=== PATIENT | female | born 1960 | race Caucasian/White ===

== ENCOUNTER 2018-12-27 06:29 | Day surgery (SDC) | payer BC, SELFPAY ==
--- NOTE | 2018-12-26 18:27 | POEE_ITS ---
History of Present Illness Chief Complaint: Progressive decreased vision, right eye Narrative: patient is a 57-year-old lady with history of diabetes with diabetic retinopathy who presented with complaints of diminished visual acuity in both eyes at both distance and near. She has difficulty reading road signs and sees halos around lights. On examination she was noted to have bilateral nuclear and cortical cataracts as well as corneal endothelial dystrophy. The option of cataract surgery was offered to the patient and she wished to proceed. NOTE: The Chief Complaint, HPI, Past Medical History, Past Surgical History, Family History, Social History, Medications, and complete Ophthalmic Exam with detailed Assessment and Plan have already been documented in the patient's outpatient ophthalmic record and are not covered again in detail here. PFSH Medical History Corneal endothelial dystrophy (Chronic) Cortical cataract of right eye (Acute) Nuclear sclerotic cataract of right eye (Acute) Asthma (Chronic) CVA (cerebral vascular accident) (Chronic) Cataract (Chronic) Hypertension (Chronic) Hyperthyroidism (Chronic) Insulin dependent diabetes mellitus (Chronic) Surgical History History of colonoscopy (Chronic) Social History Smoking/Tobacco Use Status: Never Alcohol Intake: current Alcohol Intake frequency: holidays/special occasions only Drug use: Never Substance use type: does not use Do you feel safe at home: Yes Do you feel safe in your relationship?: Yes Meds Home Medications Medication Instructions Recorded Confirmed Type albuterol sulfate [ProAir HFA] 2 puff INHALATION Q4H PRN PRN 12/21/18 12/21/18 History ascorbic acid (vitamin C) [Vitamin 500 mg PO DAILY 12/21/18 12/21/18 History C] aspirin [Aspir-Low] 81 mg PO DAILY 12/21/18 12/21/18 History atorvastatin 20 mg PO DAILY 12/21/18 12/21/18 History fluticasone propion-salmeterol 1 inh INHALATION BID PRN 12/21/18 12/21/18 History [Advair Diskus] fluticasone propionate 1 spray INTRANASAL DAILY 12/21/18 12/21/18 History insulin lispro [Humalog U-100 12/21/18 History Insulin] levothyroxine 125 mcg PO DAILY 12/21/18 12/21/18 History lisinopril 10 mg PO DAILY 12/21/18 12/21/18 History Allergies Allergy/AdvReac Type Severity Reaction Status Date / Time Penicillins Allergy Unknown Verified 12/21/18 15:39 shellfish derived Allergy Unknown Verified 12/21/18 15:39 Exam OCULAR EXAM:: Most recent ocular examination is significant for corrected visual acuity of 20/30 OD, 20/40 OS. Intraocular pressure is 10 OD, 12 OS. Extraocular motility is normal. Pupils equal, round, and reactive without afferent pupillary defect. Slit-lamp examination reveals pupils dilating to 6 mm OU. 1+ endothelial guttata OU. 1+ nuclear/cortical cataracts OU. Dilated funduscopic examination reveals disc cupping of 0.3 OU with normal vessels. Scattered drusen are present in both macula. Peripheral retina and this is normal. BRIGHTNESS ACUITY TESTING (BAT):: Brightness acuity testing of the right eye office is 20/30. Low is 20/30. Medium is 20/40. On the high setting is 20/60. Assessment and Plan (1) Nuclear sclerotic cataract of right eye: Current visit: No Status: Acute Assessment: Visually significant cataract, right eye. Plan: Cataract extraction with intraocular lens implantation, right eye (2) Cortical cataract of right eye: Current visit: No Status: Acute Assessment: Visually significant cataract, right eye. Plan: Cataract extraction with intraocular lens implantation, right eye Note: NOTE:: The details of the planned surgery, including the risks, ind ications,limitations,expectations,outcome and possible complications were explained to the patient. The patient understands the complications including, but not limited to: infection, hemorrhage, posterior dislocation of the lens or nuclear fragments which may require the intervention of a vitreoretinal surgeon, possible loss of the eye, or from anesthetic complications. The patient has been made aware of the option of not having surgery, that vision following surgery may not be equal to that prior to surgery, and that the planned surgery may not achieve the intended results. Following this discussion, which the patient appeared to understand, the patient wishes to proceed with cataract surgery with lens implantation of the affected eye to improve and maximize vision.
--- NOTE | 2018-12-26 20:28 | W.PM.DSUDISC ---
Discharge Plan Disposition Patient Disposition: HOME Condition: Stable Discharge Details Reason For Visit: CATARACT Attending Provider: Kevin Sutton Primary Care Provider: Norah Rosales Home Meds and New Rx's Prescriptions: No Action fluticasone propion-salmeterol [Advair Diskus] 250-50 mcg/dose Blister With Device 1 inh INHALATION BID PRNRF: 0 atorvastatin 20 mg Tablet 20 mg PO DAILY RF: 0 aspirin [Aspir-Low] 81 mg Tablet,Delayed Release (Dr/Ec) 81 mg PO DAILY RF: 0 ascorbic acid (vitamin C) [Vitamin C] 500 mg Tablet 500 mg PO DAILY RF: 0 levothyroxine 125 mcg Tablet 125 mcg PO DAILY RF: 0 lisinopril 10 mg Tablet 10 mg PO DAILY RF: 0 albuterol sulfate [ProAir HFA] 90 mcg/actuation Hfa Aerosol Inhaler 2 puff INHALATION Q4H PRN PRNRF: 0 fluticasone propionate 50 mcg/actuation [place],Suspension 1 spray INTRANASAL DAILY RF: 0 Humalog U-100 Insulin 100 unit/mL Cartridge RF: 0 Discharge Instructions Stand Alone Forms: Post-op Topical Cataract, Perfecto Kumari (DSU) Discharge Orders Discharge Orders: Discharge Order (Routine); Ordered 12/27/18 Ordered By: Kevin Sutton DS: Diagnosis Discharge Diagnosis (1) Nuclear sclerotic cataract of right eye: Status: Resolved (2) Cortical cataract of right eye: Status: Resolved (3) Status post cataract extraction and insertion of intraocular lens of right eye: Status: Chronic
--- NOTE | 2018-12-26 20:32 | ROE_ITS ---
Date of service: 12/27/18 Time of Service: 08:05 Operative Note PRE-OP DIAGNOSIS: Cataract, right eye PROCEDURE: Cataract extraction using phacoemulsification with intraocular lens implant, right eye SURGEON: Kevin Sutton ANESTHESIA: MAC and local (sub-tenon's anesthetic infiltration) ESTIMATED BLOOD LOSS: 0 PATHOLOGY: none sent COMPLICATIONS: None Patient was transported to: same day Patient's condition: stable Implants: Gianluca and Gianluca Vision / [employer] Tecnis ZCB00 intraocular lens Indications: Progressive decreased vision due to cataract, right eye Procedure Description: CATARACT SURGERY OPERATIVE REPORT PREOPERATIVE DIAGNOSIS: Nuclear/cortical cataract, right eye POSTOPERATIVE DIAGNOSIS: Same OPERATION: Cataract extraction using phacoemulsification with posterior chamber intraocular lens implant, right eye. IOL: IOL Head Doffer/Model: J[employer]J [employer]ariant / GALILEA Tecnis ZCB00 IOL Power: + 22.5 diopters IOL Serial Number: [id number] Optic Diameter: 6.0mm Haptic/Overall Diameter: 13.0mm PHACO INFO: Jc [employer] Vision System with OZil and Active Fluidics Cumulative Dispersed Energy (CDE): 7.10 seconds SURGEON: Kevin Sutton MD, FILIPPO ANESTHESIA: Monitored Anesthesia Care (MAC), with local sub-tenon's anesthetic infiltration COMPLICATIONS: None SPECIMENS: None INDICATIONS FOR PROCEDURE: The patient is a 57-year-old lady with history of diminished visual acuity in her right eye. She is noted to have a moderate nuclear and cortical cataract with endothelial dystrophy of the cornea. She also has maculopathy of the right eye which she understands will limit her postoperative visual acuity. The option of cataract surgery was offered to the patient and she wished to proceed. PROCEDURE: The correct surgical eye was identified and marked as the right eye and the pupil was dilated in the preoperative area using mydriatics and cycloplegics. The dilated pupil size was 7.0 mm. Oral sedation was administered in the form of an Imprimis MKO Melt (midazolam 3mg/ketamine 25mg/ondansetron 2mg). The patient was brought to the operating room where cardiopulmonary monitoring was instituted and surgical time-out was performed, confirming the correct operative eye and IOL power. Topical anesthesia was administered and ophthalmic povidone-iodine 5% was insti lled into the conjunctival fornices. Lidocaine gel was applied to the cornea and the delaney-ocular area was prepped with Betadine 10% solution and draped in the usual sterile fashion for intraocular surgery, including an aperture drape. A Tegaderm transparent film dressing was cut in half and used to cover the lashes and lid margins. Care was taken to sequester the lashes and lid margins under the Tegaderm dressing. A lid speculum was placed between the lids of the operative eye and the Nino-Sukhi operating microscope was maneuvered into position. Joaquin scissors were then used to make a conjunctival buttonhole approximately 6mm posterior to the limbus in the inferonasal quadrant. Blunt dissection was carried out to expose bare sclera, and a blunt-tipped sub-tenon?s anesthesia cannula was introduced and passed posteriorly along the globe where non- preserved plain lidocaine was injected into posterior sub-Tenon?s space. A sideport knife was used to make a paracentesis port inferiortemporally, and the anterior chamber was filled with VIscoat. A 2.4mm keratome knife was used to create a half-thickness groove at the limbus and then to construct a three-plane near-clear corneal tunnel extending 2.0mm into clear cornea in the superiortemporal position. . A flap was raised on the anterior capsule and capsulorhexis forceps were used to complete a continuous curvilinear capsulor hexis of 5.0 mm. Balanced salt solution was then used to perform cortical cleaving hydrodissection and nuclear hydrodelineation until the lens could be freely rotated within the capsular bag. The lens nucleus was then disassembled and removed within the capsular bag and iris plane using phacoemulsification. Residual cortical material was removed using the I/A handpiece. The posterior capsule was carefully polished to remove as much residual lens epithelial cells as safely possible. The capsular bag was then inflated and the anterior chamber deepened with Provisc. The lens implant described above was inserted into the capsular bag using the GALILEA [place] Injector. A Kuglen hook was used to dial the IOL into position. Residual viscoelastic was then removed first from posterior to the IOL, then from the anterior chamber using the I/A handpiece. The lens implant was noted to center nicely within the capsular bag. The incisions were stromally hydrated, and the anterior chamber was reformed using BSS. Then 0.4cc of moxifloxacin 1.5mg/ml were injected into the capsular bag and anterior chamber. The incisions were checked with a Weck spear and found to be secure. Several drops of ophthalmic povidone-iodine 5% were then applied to the eye followed by two drops of Imprimis combination gatifloxacin/dexamethasone solution. The drapes were removed and a clear plastic protective eye shield was placed over the eye. The patient was then returned to Same Day Surgery in stable condition.
[2018-12-27 06:52] VITALS: BP 131/60; PULSE 60; RESP 16; TEMP 35.6; O2SAT 98
[2018-12-27] MEDS: Tetracaine 0.5% 4 ML BTL OD ×4 (07:07→07:32)
[2018-12-27] MEDS: Tropicam./Phenyleph. (1/2.5%) 5 ML BTL OD ×3 (07:08→07:19)
[2018-12-27] MEDS: Lidocaine 2% Jelly 6 ML SYR (07:32)
[2018-12-27] MEDS: Povidone-Iodine Ophth 30 ML BTL ×2 (07:32→07:59)
[2018-12-27] MEDS: Duovisc Viscoelastic System EACH 1 EACH (07:38)
[2018-12-27] MEDS: Lidocaine 1% Pres-Free 5 ML VIAL (07:38)
[2018-12-27] MEDS: Balanced Salt Soln.-PLUS 500 ML BAG (07:38)
[2018-12-27 08:20] VITALS: BP 131/65; PULSE 52; RESP 16; TEMP 35.4; O2SAT 100
== END 2018-12-27 08:30 | disposition home or self-care (01) ==
LOC: SUR 06:29
PROVIDERS: PCP Registered Nurse; Visit Provider Ophthalmology
PROC: (CPT 66984; principal; 2018-12-27 07:30)
DX: H25.811 Combined forms of age-related cataract, right eye (principal); I10 Essential (primary) hypertension; E11.9 Type 2 diabetes mellitus without complications; Z79.4 Long term (current) use of insulin
CPT/HCPCS: 66984; V2632

== ENCOUNTER 2019-01-10 06:23 | Day surgery (SDC) | payer BC, SELFPAY ==
--- NOTE | 2019-01-09 17:12 | POEE_ITS ---
History of Present Illness Chief Complaint: Progressive decreased vision, left eye Narrative: The patient is a 58-year-old lady with history of progressive decreased vision in both eyes at both distance and near. She noted significant difficulty with driving. On examination she was noted to have bilateral nuclear and cortical cataracts. She was significantly symptomatic that she desired cataract surgery to attempt to improve and maximize her vision. She underwent cataract surgery in the right eye on 12/27/2018. Postoperatively she has regained uncorrected vision of 20/25 in the right eye. She now presents for cataract surgery in the left eye. NOTE: The Chief Complaint, HPI, Past Medical History, Past Surgical History, Family History, Social History, Medications, and complete Ophthalmic Exam with detailed Assessment and Plan have already been documented in the patient's outpatient ophthalmic record and are not covered again in detail here. PFSH Medical History Corneal endothelial dystrophy (Chronic) Asthma (Chronic) CVA (cerebral vascular accident) (Chronic) Cataract (Chronic) Hypertension (Chronic) Hyperthyroidism (Chronic) Insulin dependent diabetes mellitus (Chronic) Cortical cataract of right eye (Resolved) Nuclear sclerotic cataract of right eye (Resolved) Surgical History Status post cataract extraction and insertion of intraocular lens of right eye (Chronic 12/27/18) History of colonoscopy (Chronic) Social History Smoking/Tobacco Use Status: Never Alcohol Intake: current Alcohol Intake frequency: holidays/special occasions only Drug use: Never Substance use type: does not use Do you feel safe at home: Yes Do you feel safe in your relationship?: Yes Meds Home Medications Medication Instructions Recorded Confirmed Type albuterol sulfate [ProAir HFA] 2 puff INHALATION Q4H PRN PRN 12/21/18 12/27/18 History ascorbic acid (vitamin C) [Vitamin 500 mg PO DAILY 12/21/18 12/27/18 History C] aspirin [Aspir-Low] 81 mg PO DAILY 12/21/18 12/27/18 History atorvastatin 20 mg PO DAILY 12/21/18 12/27/18 History fluticasone propion-salmeterol 1 inh INHALATION BID PRN 12/21/18 12/27/18 History [Advair Diskus] fluticasone propionate 1 spray INTRANASAL DAILY 12/21/18 12/21/18 History insulin lispro [Humalog U-100 12/21/18 History Insulin] levothyroxine 125 mcg PO DAILY 12/21/18 12/27/18 History lisinopril 10 mg PO DAILY 12/21/18 12/27/18 History Allergies Allergy/AdvReac Type Severity Reaction Status Date / Time Penicillins Allergy Unknown Verified 12/27/18 06:48 shellfish derived Allergy Unknown Verified 12/27/18 06:48 Exam OCULAR EXAM:: Most recent ocular examination is significant for uncorrected vision of 20/25 in the right eye. Corrected visual acuity is 20/40 in the left eye. Intraocular pressure is 10 OD, 12 OS. Extraocular motility is normal. Pupils equal, round, and reactive without afferent pupillary defect slit-lamp examination is significant for pupils dilating to 6 mm OU. 1+ corneal endothel ial guttata OU. Well-positioned PCIOL OD with clear posterior capsule. 1+ nuclear/cortical cataract OS. Optic nerves show cupping of 0.3 OU with normal vessels and good color. There are a few scattered drusen in both maculas. Peripheral retina and vitreous is normal. BRIGHTNESS ACUITY TESTING (BAT):: Brightness acuity testing of the left eye off ice is 20/40. Low is 20/30. Medium is 20/30. High is 20/40. Assessment and Plan (1) Nuclear sclerotic cataract of left eye: Current visit: No Status: Acute Assessment: Visually significant cataract, left eye. Plan: Cataract extraction with intraocular lens implantation, left eye (2) Cortical cataract of left eye: Current visit: No Status: Acute Assessment: Visually significant cataract, left eye. Plan: Cataract extraction with intraocular lens implantation, left eye Note: NOTE:: The details of the planned surgery, including the risks, indications,limitations,expectations,outcome and possible complications were explained to the patient. The patient understands the complications including, but not limited to: infection, hemorrhage, posterior dislocation of the lens or nuclear fragments which may require the intervention of a vitreoretinal surgeon, possible loss of the eye, or from anesthetic complications. The patient has been made aware of the option of not having surgery, that vision following surgery may not be equal to that prior to surgery, and that the planned surgery may not achieve the intended results. Following this discussion, which the patient appeared to understand, the patient wishes to proceed with cataract surgery with lens implantation of the affected eye to improve and maximize vision.
[2019-01-10 06:38] VITALS: BP 126/70; PULSE 52; RESP 16; TEMP 35.5; O2SAT 97
[2019-01-10] MEDS: Tetracaine 0.5% 4 ML BTL OS ×4 (06:53→07:28)
[2019-01-10] MEDS: Tropicam./Phenyleph. (1/2.5%) 5 ML BTL OS ×3 (06:53→07:01)
[2019-01-10] MEDS: Povidone-Iodine Ophth 30 ML BTL (07:28)
[2019-01-10] MEDS: Lidocaine 2% Jelly 6 ML SYR (07:28)
[2019-01-10] MEDS: Lidocaine 1% Pres-Free 5 ML VIAL (07:35)
[2019-01-10] MEDS: Balanced Salt Soln.-PLUS 500 ML BAG (07:36)
[2019-01-10] MEDS: Duovisc Viscoelastic System EACH 1 EACH (07:36)
[2019-01-10] MEDS: Triamcinolone 40 MG/ML VIAL (07:37)
--- NOTE | 2019-01-10 08:06 | PDOC.DSDIS_ITS ---
Discharge Plan Disposition Patient Disposition: HOME Condition: Stable Discharge Details Attending Provider: Kevin Sutton Primary Care Provider: Norah Rosales Home Meds and New Rx's Prescriptions: No Action fluticasone propion-salmeterol [Advair Diskus] 250-50 mcg/dose Blister With Device 1 inh INHALATION BID PRNRF: 0 atorvastatin 20 mg Tablet 20 mg PO DAILY RF: 0 aspirin [Aspir-Low] 81 mg Tablet,Delayed Release (Dr/Ec) 81 mg PO DAILY RF: 0 ascorbic acid (vitamin C) [Vitamin C] 500 mg Tablet 500 mg PO DAILY RF: 0 levothyroxine 125 mcg Tablet 125 mcg PO DAILY RF: 0 lisinopril 10 mg Tablet 10 mg PO DAILY RF: 0 albuterol sulfate [ProAir HFA] 90 mcg/actuation Hfa Aerosol Inhaler 2 puff INHALATION Q4H PRN PRNRF: 0 fluticasone propionate 50 mcg/actuation [place],Suspension 1 spray INTRANASAL DAILY RF: 0 Humalog U-100 Insulin 100 unit/mL Cartridge Continuous Subcutaneous Infusion PRN RF: 0 Discharge Instructions Stand Alone Forms: Post-op Topical Cataract, Perfecto Kumari (DSU) Discharge Orders Discharge Orders: Discharge Order (Routine); Ordered 01/10/19 Ordered By: Kevin Sutton DS: Diagnosis Discharge Diagnosis (1) Nuclear sclerotic cataract of left eye: Status: Resolved (2) Cortical cataract of left eye: Status: Resolved (3) Status post cataract extraction and insertion of intraocular lens of left eye: Status: Chronic
--- NOTE | 2019-01-10 08:06 | W.PM.OP ---
Date of service: 01/10/19 Time of Service: 08:06 Operative Note PRE-OP DIAGNOSIS: Cataract, left eye POST-OP DIAGNOSIS: same PROCEDURE: Cataract extraction using phacoemulsification with intraocular lens implant, left eye SURGEON: Kevin Sutton ANESTHESIA: MAC and local (sub-tenon's anesthetic infiltration) PATHOLOGY: none sent COMPLICATIONS: None Patient was transported to: same day Patient's condition: stable Implants: Gianluca and Gianluca Vision / [employer] Tecnis ZCB00 Indications: Progressive decreased vision due to cataract, left eye Procedure Description: CATARACT SURGERY OPERATIVE REPORT PREOPERATIVE DIAGNOSIS: Nuclear/cortical cataract, left eye Corneal endothelial dystrophy POSTOPERATIVE DIAGNOSIS: Same OPERATION: Cataract extraction using phacoemulsification with posterior chamber intraocular lens implant, left eye. IOL: IOL Jewelry Sorter/Model: J&J Vision / GALILEA Tecnis ZCB00 IOL Power: + 23.0 diopters IOL Serial Number: [id number] Optic Diameter: 6.0mm Haptic/Overall Diameter: 13.0mm PHACO INFO: [employer] Vision System with OZil and Active Fluidics Cumulative Dispersed Energy (CDE): 4.81 seconds SURGEON: Kevin Sutton MD, FILIPPO ANESTHESIA: Monitored Anesthesia Care (MAC), with local sub-tenon's anesthetic infiltration COMPLICATIONS: None SPECIMENS: None INDICATIONS FOR PROCEDURE: The patient is a 58-year-old lady with history of corneal endothelial dystrophy who presented with complaints of diminished visual acuity in both eyes. She was noted to have significant bilateral nuclear and cortical cataracts as well as corneal endothelial dystrophy. The option of cataract surgery was offered to the patient and she wished to proceed. She has already undergone cataract surgery in the right eye, and now presents for surgery in the left eye. PROCEDURE: The correct surgical eye was identified and marked as the left eye and the pupil was dilated in the preoperative area using mydriatics and cycloplegics. The dilated pupil size was 7.0 mm. Oral sedation was administered in the form of an Imprimis MKO Melt (midazolam 3mg/ketamine 25mg/ondansetron 2mg). The patient was brought to the operating room where cardiopulmonary monitoring was instituted and surgical time-out was performed, confirming the correct operative eye and IOL power. Topical anesthesia was administered and ophthalmic povidone-iodine 5% was instilled into the conjunctival fornices. Lidocaine gel was applied to the cornea and the delaney-ocular area was prepped with Betadine 10% solution and draped in the usual sterile fashion for intraocular surgery, including an aperture drape. A Tegaderm transparent film dressing was cut in half and used to cover the lashes and lid margins. Care was taken to sequester the lashes and lid margins under the Tegaderm dressing. A lid speculum was placed between the lids of the operative eye and the Nino-Sukhi operating microscope was maneuvered into position. Joaquin scissors were then used to make a conjunctival buttonhole approximately 6mm posterior to the limbus in the inferonasal quadrant. Blunt dissection was carried out to expose bare sclera, and a blunt-tipped sub-tenon?s anesthesia cannula was introduced and passed posteriorly along the globe where non-preserved plain lidocaine was injected into posterior sub-Tenon?s space. A sideport knife was used to make a paracentesis port superior/superiortemporal, and the anterior chamber was filled with Viscoat. A 2.4mm keratome knife was used to create a half-thickness groove at the limbus and then to construct a three-plane near-clear corneal tunnel extending 2.0mm into clear cornea in the temporal position. . A flap was raised on the anterior capsule and capsulorhexis forceps were used to complete a continuous curvilinear capsulorhexis of 5.5 mm. Balanced salt solution was then used to perform cortical cleaving hydrodissection and nuclear hydrodelineation until the lens could be freely rotated within the capsular bag. The lens nucleus was then disassembled and removed within the capsular bag and iris plane using phacoemulsification. Residual cortical material was removed using the 45-degree angled silicone I/A tip with 0.3mm port. The posterior capsule was carefully polished to remove as much residual lens epithelial cells as safely possible. The capsular bag was then inflated and the anterior chamber deepened with Provisc. The lens implant described above was inserted into the capsular bag using the GALILEA [place] Injector. A Kuglen hook was used to dial the IOL into position. Residual viscoelastic was then removed first from posterior to the IOL, then from the anterior chamber using the I/A handpiece. The lens implant was noted to center nicely within the capsular bag. The incisions were stromally hydrated, and the anterior chamber was reformed using BSS. Then 0.4cc of moxifloxacin 1.5mg/ml were injected into the capsular bag and anterior chamber. The incisions were checked with a Weck spear and found to be secure. At the conclusion of the procedure, a 1 cc mixture containing 20 mg of Kenalog in 0.5 cc, and 2.5 mg of moxifloxacin in 0.5 cc were injected into posterior sub-tenon's space using the sub-tenon's anesthesia cannula. Several drops of ophthalmic povidone-iodine 5% were then applied to the eye followed by two drops of Imprimis combination prednisolone/gatifloxacin/bromfenac solution. The drapes were removed and a clear plastic protective eye shield was placed over the eye. The patient was then returned to Same Day Surgery in stable condition.
--- NOTE | 2019-01-10 08:09 | ROE_ITS ---
Date of service: 01/10/19 Time of Service: 08:06 Operative Note PRE-OP DIAGNOSIS: Cataract, left eye POST-OP DIAGNOSIS: same PROCEDURE: Cataract extraction using phacoemulsification with intraocular lens implant, left eye SURGEON: Kevin Sutton ANESTHESIA: MAC and local (sub-tenon's anesthetic infiltration) PATHOLOGY: none sent COMPLICATIONS: None Patient was transported to: same day Patient's condition: stable Implants: Gianluca and [employer] / [employer] Tecnis ZCB00 Indications: Progressive decreased vision due to cataract, left eye Procedure Description: CATARACT SURGERY OPERATIVE REPORT PREOPERATIVE DIAGNOSIS: Nuclear/cortical cataract, left eye Corneal endothelial dystrophy POSTOPERATIVE DIAGNOSIS: Same OPERATION: Cataract extraction using phacoemulsification with posterior chamber intraocular lens implant, left eye. IOL: IOL Business Database Analyst/Model: [employer] / GALILEA Tecnis ZCB00 IOL Power: + 23.0 diopters IOL Serial Number: [id number] Optic Diameter: 6.0mm Haptic/Overall Diameter: 13.0mm PHACO INFO: [employer] Vision System with OZil and [employer] Cumulative Dispersed Energy (CDE): 4.81 seconds SURGEON: Kevin Sutton MD, FILIPPO ANESTHESIA: Monitored Anesthesia Care (MAC), with local sub-tenon's anesthetic infiltration COMPLICATIONS: None SPECIMENS: None INDICATIONS FOR PROCEDURE: The patient is a 58-year-old lady with history of corneal endothelial dystrophy who presented with complaints of diminished visual acuity in both eyes. She was noted to have significant bilateral nuclear and cortical cataracts as well as corneal endothelial dystrophy. The option of cataract surgery was offered to the patient and she wished to proceed. She has already undergone cataract surgery in the right eye, and now presents for surgery in the left eye. PROCEDURE: The correct surgical eye was identified and marked as the left eye and the pupil was dilated in the preoperative area using mydriatics and cycloplegics. The dilated pupil size was 7.0 mm. Oral sedation was administered in the form of an Imprimis MKO Melt (midazolam 3mg/ketamine 25mg/ondansetron 2mg). The patient was brought to the operating room where cardiopulmonary monitoring was instituted and surgical time-out was performed, confirming the correct operative eye and IOL power. Topical anesthesia was administered and ophthalmic povidone-iodine 5% was instilled into the conjunctival fornices. Lidocaine gel was applied to the cornea and the delaney-ocular area was prepped with Betadine 10% solution and draped in the usual sterile fashion for intraocular surgery, including an aperture drape. A Tegaderm transparent film dressing was cut in half and used to cover the lashes and lid margins. Care was taken to sequester the lashes and lid margins under the Tegaderm dressing. A lid speculum was placed between the lids of the operative eye and the Nino-Sukhi operating microscope was maneuvered into position. Joaquin scissors were then used to make a conjunctival buttonhole approximately 6mm posterior to the limbus in the inferonasal quadrant. Blunt dissection was carried out to expose bare sclera, and a blunt-tipped sub-tenon?s anesthesia cannula was introduced and passed posteriorly along the globe where non- preserved plain lidocaine was injected into posterior sub-Tenon?s space. A sideport knife was used to make a paracentesis port superior/superiortemporal, and the anterior chamber was filled with Viscoat. A 2.4mm keratome knife was used to create a half-thickness groove at the limbus and then to construct a three-plane near-clear corneal tunnel extending 2.0mm into clear cornea in the temporal position. . A flap was raised on the anterior capsule and capsulorhexis forceps were used to complete a continuous curvilinear capsulorhexis of 5.5 mm. Balanced salt solution was then used to perform cortical cleaving hydrodissection and nuclear hydrodelineation until the lens could be freely rotated within the capsular bag. The lens nucleus was then disassembled and removed within the capsular bag and iris plane using phacoemulsification. Residual cortical material was removed using the 45-degree angled silicone I/A tip with 0.3mm port. The posterior capsule was carefully polished to remove as much residual lens epithelial cells as safely possible. The capsular bag was then inflated and the anterior chamber deepened with Provisc. The lens implant described above was inserted into the capsular bag using the GALILEA [place] Injector. A Kuglen hook was used to dial the IOL into position. Residual viscoelastic was then removed first from posterior to the IOL, then from the anterior chamber using the I/A handpiece. The lens implant was noted to center nicely within the capsular bag. The incisions were stromally hydrated, and the anterior chamber was reformed using BSS. Then 0.4cc of moxifloxacin 1.5mg/ml were injected into the capsular bag and anterior chamber. The incisions were checked with a Weck spear and found to be secure. At the conclusion of the procedure, a 1 cc mixture containing 20 mg of Kenalog in 0.5 cc, and 2.5 mg of moxifloxacin in 0.5 cc were injected into posterior sub- tenon's space using the sub-tenon's anesthesia cannula. Several drops of ophthalmic povidone-iodine 5% were then applied to the eye followed by two drops of Imprimis combination prednisolone/gatifloxacin/bromfenac solution. The drapes were removed and a clear plastic protective eye shield was placed over the eye. The patient was then returned to [facility] in stable condition.
[2019-01-10 08:33] VITALS: BP 129/69; PULSE 46; RESP 16; TEMP 35.3; O2SAT 99
== END 2019-01-10 09:05 | disposition home or self-care (01) ==
PROVIDERS: PCP Registered Nurse; Visit Provider Ophthalmology
PROC: (CPT 66984; principal; 2019-01-10 07:30)
DX: H25.812 Combined forms of age-related cataract, left eye (principal); H18.51 Endothelial corneal dystrophy; Z98.41 Cataract extraction status, right eye; Z96.1 Presence of intraocular lens; I10 Essential (primary) hypertension; E11.9 Type 2 diabetes mellitus without complications; Z79.4 Long term (current) use of insulin
CPT/HCPCS: 66984; V2632

== ENCOUNTER → 2023-08-27 02:06 | Outpatient (CLI) | payer BC, SELFPAY ==
--- NOTE | 2023-08-27 07:30 | DI.RAD_ITS ---
Exam(s) XR FOOT LT COMPLETE EXAM: XR FOOT LT COMPLETE CLINICAL HISTORY: Pain in left foot,m79.672. TECHNIQUE: 2D digital imaging was performed of the left foot. Three images were obtained. AP, obli que and lateral views were obtained. COMPARISON: No exams were available for comparison FINDINGS: BONES: No acute fracture is present. No bony destructive lesion is seen. JOINTS: No dislocation present. Mild degenerative changes are seen in the interphalangeal joints of t he foot. SOFT TISSUE: The sclerosis. IMPRESSION: Mild arthrosis of the left foot. DATA REPOSITORY: RADIATION DOSE DELIVERED:
--- NOTE | 2023-08-27 07:30 | DI.RAD_ITS ---
Exam(s) XR FOOT RT COMPLETE EXAM: XR FOOT RT COMPLETE CLINICAL HISTORY: Pain in right foot,m76.821. TECHNIQUE: 2D digital imaging was performed of the right foot. Three images were obtained. AP, obl ique and lateral views were obtained. COMPARISON: No exams were available for comparison FINDINGS: BONES: No acute fracture is present. No bony destructive lesion is seen. Nonspecific small subchondra l cysts are seen in the head of the proximal phalanx of the great toe in the base of the proximal pha lanx of the 3rd toe. These are nonspecific. The joint spaces are well maintained. JOINTS: No dislocation present. The joint spaces are well maintained. SOFT TISSUE: Atherosclerosis. IMPRESSION: No acute fracture or dislocation. DATA REPOSITORY: RADIATION DOSE DELIVERED:
== END ==
PROVIDERS: PCP Nurse Practitioner Family; Visit Provider Podiatrist
DX: M79.672 Pain in left foot (principal); M76.821 Posterior tibial tendinitis, right leg
CPT/HCPCS: 73630

== ENCOUNTER → 2023-09-07 10:44 | Outpatient (CLI) | payer BC, SELFPAY ==
--- NOTE | 2023-09-07 09:38 | DI.MRI_ITS ---
Exam(s) MR LOWER JOINT RT WO EXAM: MR LOWER JOINT RT WO CLINICAL HISTORY: recalcitrant pain to inner right ankle, posterior tibial tendinitis,M79.671 TECHNIQUE: Multiplanar multisequence MRI was performed without intravenous contrast. COMPARISON: CR XR FOOT RT COMPLETE from 08/27/2023 CR XR FOOT LT COMPLETE from 08/27/2023 FINDINGS: BONES/JOINTS: No fracture or contusion pattern. There are several subchondral cysts noted, in the med ial aspect of the talus as well as at the sustentacular of the calcaneus. Findings could be degenera tive however inflammatory arthritis could be considered. The talar dome is smooth. The ankle mortise is maintained. A small tibiotalar as well as posterior talocalcaneal joint effusions are present. A small amount of fluid is noted at the dorsal talonavicular joint. LIGAMENTS: The tibiofibular and calcaneofibular ligaments are intact. The talofibular ligaments are i ntact. The deltoid ligament is intact. The syndesmosis is unremarkable. Sinus tarsi is normal. MUSCULOTENDINOUS STRUCTURES: Achilles tendon: Unremarkable. Plantar fascia: Unremarkable. Anterior Extensor tendons: Unremarkable. Posterior Tibialis: Unremarkable. Flexor Digitorum longus: Unremarkable. Flexor Hallucis longus: Unremarkable. Peroneus longus: Unremarkable. Peroneus brevis:Unremarkable. SOFT TISSUES: Mild subcutaneous edema. IMPRESSION: No evidence of a tendon abnormality. Small joint effusions. Bony subchondral cysts in the medial talus and sustentacular of the calcaneus could be degenerative subchondral cyst versus related to inflammatory arthropathy. Clinical correla tion recommended. DATA REPOSITORY:
== END ==
PROVIDERS: PCP Nurse Practitioner Family; Visit Provider Podiatrist
DX: M79.671 Pain in right foot (principal)
CPT/HCPCS: 73721